=== PATIENT | male | born 1960 | race Two or more races ===

== ENCOUNTER 2019-09-25 07:38 | Outpatient (CLI) | payer OTHER | END 2019-09-25 07:43 | disposition home or self-care (01) | LOC: NUCLEAR 07:38 | PROVIDERS: ATTEND Internal Medicine Cardiovascular Disease | DX: I25.10 Atherosclerotic heart disease of native coronary artery without angina pectoris (principal); I25.6 Silent myocardial ischemia; I25.2 Old myocardial infarction; R94.31 Abnormal electrocardiogram [ECG] [EKG]; I50.1 Left ventricular failure, unspecified | CPT/HCPCS: 78452; 93017; A9500; J0153 ==